=== PATIENT | female | born 1995 | race African-American/Black ===

== ENCOUNTER 2016-08-16 00:28 | Emergency (ER) | payer SELFPAY ==
[~2016-08-16] VITALS: Ht 170.2 cm; Wt 75.0 kg
[~2016-08-16 00:28] MED LIST: IMOD2TAB PO; PROM25SU8 PO
[2016-08-16 00:30] VITALS: BP 134/65; PULSE 74; RESP 16; TEMP 97.8; O2SAT 100
[2016-08-16] MEDS ORDERED: DICL75TA PO (01:12)
[2016-08-16] MEDS ORDERED: LAMI1CRE TOPICAL (01:13)
--- NOTE | 2016-08-16 01:17 | PD ---
HPI Chief Complaint: Injury Time Seen by Provider: 01:13 Travel History International Travel<30 days: No Contact w/Intl Traveler<30days: No Traveled to known affect area: No History of Present Illness HPI 20-year-old black female presents to emergency Department with complaints of bilateral foot pain and swelling. She states that her feet are wet continuously as she works. They've been bothering her now for one month. They' re sharp and throbbing. She also has breakdown of the skin. She denies any fever or chills. No aggravating or alleviating factors PFSH Past Medical History ADHD: Yes Diminished Hearing: No Tetanus Vaccination: Unknown Influenza Vaccination: No ?: Not Past Surgical History Eye Surgery: Yes Social History Alcohol Use: Yes (once a week) Tobacco Use: Yes Substance Use: Yes (Marijuana) Allergies-Medications (Allergen,Severity, Reaction): Coded Allergies: No Known Allergies (Unverified , 08/16/16) Reported Meds & Prescriptions Reported Meds & Active Scripts Active Diclofenac Sodium DR (Diclofenac Sodium) 75 Mg Tabdr 75 Mg PO BID Review of Systems Except as stated in HPI: all other systems reviewed are Neg Musculoskeletal: Positive: Edema, Pain Skin: Positive Rash, Positive Itching Physical Exam Narrative GENERAL: This is a well-nourished, well-developed patient, in no apparent distress. SKIN: No rashes, ecchymoses or lesions. Warm and dry. HEAD: Atraumatic. Normocephalic. EYES: PERRL, EOMI, no discharge or injection. No scleral icterus. EARS: Clear NOSE: Nasal turbinates appear normal. THROAT: Mucosa pink and moist. Airway patent. NECK: Trachea midline. supple, moves head freely. LUNGS: Clear to auscultation. CV: Regular in rhythm. ABDOMEN: Soft nontender. EXT: No clubbing cyanosis. Examination of both feet reveal edema of the distal forefoot with skin breakdown and blistering. This is worse in the interdigital spaces but involves the plantar surface of the feet. She has intact sensation with good distal pulses. There is a foul odor associated with this. This is consistent with foot fungus Data Data Last Documented VS Vital Signs Date Time Temp Pulse Resp B/P Pulse Ox O2 Delivery O2 Flow Rate FiO2 08/16/16 01:03 16 Room Air 08/16/16 00:30 97.8 74 134/65 100 MDM Medical Decision Making Medical Screen Exam Complete: Yes Emergency Medical Condition: Yes Medical Record Reviewed: Yes Differential Diagnosis MDM: High Differential diagnoses: Abscess, folliculitis, cellulitis, lymphangitis, abrasion, contact dermatitis, tinea pedis Narrative Course This is tinea pedis Diagnosis Primary Impression: Tinea pedis of both feet Patient Instructions: General Instructions Additional Instructions: Rest. Elevation. Keep her feet clean and dry. Wash her feet with soap and water twice daily. Medications as directed. Where 2 pairs of socks. Follow-up with a history department chair in 1-2 weeks. Med/Other Pt SpecificInfo: Prescription(s) given, Wound Care Scripts Terbinafine Topical (Lamisil At Topical)1 % Cream1 Applic TOPICAL BID 30 Days Ref 0 Prov:Nadine Moore MD 08/16/[address] 75 Mg Tabdr75 Mg PO BID #20 TAB Prov:Nadine Moore MD 08/16/16 Disposition: 01 DISCHARGE HOME Condition: Stable Cosme Perry Aug 16, 2016 01:17
== END 2016-08-16 01:47 | disposition home or self-care (01) ==
LOC: NEPB 00:28
DX: B35.3 Tinea pedis (principal); F90.9 Attention-deficit hyperactivity disorder, unspecified type; F12.10 Cannabis abuse, uncomplicated; F10.10 Alcohol abuse, uncomplicated; Z72.0 Tobacco use
CPT/HCPCS: 99283

== ENCOUNTER 2016-12-28 18:07 | Inpatient (IN) | payer SELFPAY ==
[~2016-12-28] VITALS: Ht 167.6 cm; Wt 71.0 kg
[~2016-12-28 18:07] MED LIST changes: +DICL75TA PO; -IMOD2TAB PO; +LAMI1CRE TOPICAL; -PROM25SU8 PO
[2016-12-28 18:09] VITALS: BP 139/86; PULSE 71; RESP 16; TEMP 98.8; O2SAT 100
[2016-12-28] MEDS ORDERED: LORazepam 1 MG TAB PO ONE ×2 (18:45→21:00)
--- NOTE | 2016-12-28 18:52 | PD ---
HPI Chief Complaint: Psychiatric Symptoms Time Seen by Provider: 18:49 Travel History International Travel<30 days: No Contact w/Intl Traveler<30days: No Traveled to known affect area: No History of Present Illness HPI 21-year-old female that presents to the ED for evaluation of psychiatric evaluation. Patient has a history of MR and adjustment disorder. She apparently for the past year has progressively gotten worse. Patient has had episodes where she will going rampage and that she will get really angry and agitated and making multiple statements and conversant family members. Patient was brought here by family is concerned as today the last episode was more severe and they were able to convince her to come here. On initial evaluation patient is having anger outbursts but she is able to be redirected. Patient denies any suicidal or homicidal ideation but apparently she made a suicidal To a family member yesterday. She has no psychiatrist. She takes no medications. No allergies. Denies any chest pain or shortness of breath. Other medical issues. Denies any drug abuse other than marijuana when she was younger. [facility] Past Medical History ADHD: Yes Diminished Hearing: No ?: Not LMP: 12/22/2016 Past Surgical History Eye Surgery: Yes Social History Alcohol Use: Yes (once a week) Tobacco Use: Yes Substance Use: Yes (Marijuana cocaine) Allergies-Medications (Allergen,Severity, Reaction): Coded Allergies: No Known Allergies (Unverified , 08/16/16) Reported Meds & Prescriptions Reported Meds & Active Scripts Active Lamisil At Topical (Terbinafine Topical) 1 % Cream 1 Applic TOPICAL BID [address] (Diclofenac Sodium) 75 Mg Tabdr 75 Mg PO BID Reported Propranolol (Propranolol HCl) 10 Mg Tab 10 Mg PO DAILY Lexapro (Escitalopram Oxalate) 10 Mg Tab 10 Mg PO DAILY Review of Systems Except as stated in HPI: all other systems reviewed are Neg Physical Exam Narrative GENERAL: SKIN: Warm and dry. HEAD: Atraumatic. Normocephalic. EYES: Pupils equal and round. No scleral icterus. No injection or drainage. ENT: No nasal bleeding or discharge. Mucous membranes pink and moist. NECK: Trachea midline. No JVD. CARDIOVASCULAR: Regular rate and rhythm. RESPIRATORY: No accessory muscle use. Clear to auscultation. Breath sounds equal bilaterally. GASTROINTESTINAL: Abdomen soft, non-tender, nondistended. Hepatic and splenic margins not palpable. MUSCULOSKELETAL: Extremities without clubbing, cyanosis, or edema. No obvious deformities. NEUROLOGICAL: Awake and alert. No obvious cranial nerve deficits. Motor grossly within normal limits. Five out of 5 muscle strength in the arms and legs. Normal speech. PSYCHIATRIC: Appropriate mood and affect; insight and judgment normal. Data Data Last Documented VS Vital Signs Date Time Temp Pulse Resp B/P Pulse Ox O2 Delivery O2 Flow Rate FiO2 12/28/16 18:32 20 12/28/16 18:09 98.8 71 139/86 100 Room Air Orders Complete Blood Count With Diff (12/28/16 18:29) Comprehensive Metabolic Panel (12/28/16 18:29) Urinalysis - C+S If Indicated (12/28/16 18:29) Psych Screen (12/28/16 18:29) Drug Screen, Random Urine (12/28/16 18:29) Alcohol (Ethanol) (12/28/16 18:29) Salicylates (Aspirin) (12/28/16 18:29) Tylenol (Acetaminophen) (12/28/16 18:29) Lorazepam (Ativan) (12/28/16 18:45) Labs Laboratory Tests Test 12/28/16 19:20 White Blood Count 6.3 TH/MM3 Red Blood Count 4.94 MIL/MM3 Hemoglobin 13.6 GM/DL Hematocrit 40.9 % Mean Corpuscular Volume 82.8 FL Mean Corpuscular Hemoglobin 27.6 PG Mean Corpuscular Hemoglobin 33.4 % Concent Red Cell Distribution Width 13.9 % Platelet Count 253 TH/MM3 Mean Platelet Volume 7.4 FL Neutrophils (%) (Auto) 67.8 % Lymphocytes (%) (Auto) 24.8 % Monocytes (%) (Auto) 6.7 % Eosinophils (%) (Auto) 0.2 % Basophils (%) (Auto) 0.5 % Neutrophils # (Auto) 4.3 TH/MM3 Lymphocytes # (Auto) 1.6 TH/MM3 Monocytes # (Auto) 0.4 TH/MM3 Eosinophils # (Auto) 0.0 TH/MM3 Basophils # (Auto) 0.0 TH/MM3 CBC Comment DIFF FINAL Differential Comment Sodium Level 139 MEQ/L Potassium Level 3.7 MEQ/L Chloride Level 107 MEQ/L Carbon Dioxide Level 24.9 MEQ/L Anion Gap 7 MEQ/L Blood Urea Nitrogen 10 MG/DL Creatinine 0.86 MG/DL Estimat Glomerular Filtration 100 ML/MIN Rate Random Glucose 71 MG/DL Calcium Level 9.1 MG/DL Total Bilirubin 0.4 MG/DL Aspartate Amino Transf 16 U/L (AST/SGOT) Alanine Aminotransferase 19 U/L (ALT/SGPT) Alkaline Phosphatase 61 U/L Total Protein 7.6 GM/DL Albumin 4.2 GM/DL Salicylates Level 3.5 MG/DL Urine Opiates Screen NEG Acetaminophen Level LESS THAN 2.0 MCG/ML Urine Barbiturates Screen NEG Urine Amphetamines Screen NEG Urine Benzodiazepines Screen NEG Urine Cocaine Screen NEG Urine Cannabinoids Screen POS Ethyl Alcohol Level LESS THAN 3 MG/DL MDM Medical Decision Making Medical Screen Exam Complete: Yes Emergency Medical Condition: Yes Medical Record Reviewed: Yes Interpretation(s) CBC & BMP Diagram 12/28/16 19:20 LFTs WNL tox positive for cannabinoids. Differential Diagnosis Depression versus suicidal ideation versus anxiety versus adjustment disorder versus mood disorder versus bipolar disorder versus schizophrenia versus paranoid disorder versus psychosis versus substance abuse versus alcohol abuse versus alcohol induced psychosis versus homicidality addition versus cutting versus personality disorder Narrative Course 21-year-old female that presents to the ED for evaluation of psych. Patient was properly examined and was found to have signs and symptoms consistent with psychiatric illness. No sign of acute medical distress. Patient at this moment is voluntary and she denies any suicidal ideation. Family is here with her and agree with psychiatric evaluation. Patient was given Ativan by mouth to help with her symptoms. At the time she is now called. Labs were ordered. Patient will be medically clear. Okay to be seen by psych. Mental health screening was discussed with the patient. Diagnosis Primary Impression: Outbursts of anger Neal Bautista Dec 28, 2016 18:52
[2016-12-28] MEDS ORDERED: PROP10TA6 PO (19:29)
[2016-12-28] MEDS ORDERED: LEXA10TA PO (19:29)
[2016-12-28 19:58] LABS: AUTOMATED NEUTROPHIL # 4.3 TH/MM3 (1.8-7.7); BASOPHIL % 0.5 % (0.0-2.0); EOSINOPHIL % 0.2 % (0.0-4.0); HEMATOCRIT 40.9 % (35.0-46.0); HEMO FLAGS DIFF FINAL; LYMPH % 24.8 % (9.0-44.0); LYMPHOCYTE # 1.6 TH/MM3 (1.0-4.8); MEAN CELL VOLUME 82.8 FL (80.0-100.0); MEAN CORPUSCULAR HEMOGLOBIN 27.6 PG (27.0-34.0); MEAN CORPUSCULAR HGB CONC 33.4 % (32.0-36.0); MONO % 6.7 % (0.0-8.0); NEUT % 67.8 % (16.0-70.0); PLATELET COUNT 253 TH/MM3 (150-450); RED BLOOD COUNT 4.94 MIL/MM3 (4.00-5.30); RED CELL DISTRIBUTION WIDTH 13.9 % (11.6-17.2); WHITE BLOOD COUNT 6.3 TH/MM3 (4.0-11.0)
[2016-12-28 20:00] VITALS: BP 124/64; PULSE 72; RESP 18; O2SAT 100
[2016-12-28 20:21] LABS: AMPHETAMINE, URINE NEG (NEG); BARBITURATES, URINE NEG (NEG); COCAINE, URINE NEG (NEG)
[2016-12-28 20:22] LABS: ANION GAP 7 MEQ/L (5-15); AST (GOT) 16 U/L (15-37); BICARBONATE 24.9 MEQ/L (21.0-32.0); BLOOD UREA NITROGEN 10 MG/DL (7-18); CHLORIDE 107 MEQ/L (98-107); GLOMERULAR FILTRATION RATE 100 ML/MIN (>89); POTASSIUM 3.7 MEQ/L (3.5-5.1); SODIUM (NA) 139 MEQ/L (136-145)
[2016-12-28 20:25] LABS: ACETAMINOPHEN LESS THAN 2.0 MCG/ML (10.0-30.0); ALKALINE PHOSPHATASE 61 U/L (45-117); ALT (GPT) 19 U/L (10-53); TOTAL BILIRUBIN ADULT 0.4 MG/DL (0.2-1.0)
[2016-12-28 20:31] LABS: BACTERIA, URINE MANY /hpf; BLOOD, URINE SMALL (NEG); COMMENT (UR) CULTURE INDICATED; CULTURE IF INDICATED CULTURE INDICATED; GLUCOSE,URINE NEG (NEG); KETONE, URINE 10 mg/dL (NEG); MUCUS URINE MANY /lpf (OCC); NITRITE,URINE NEG (NEG); PH, URINE 5.5 (5.0-8.5); SQUAMOUS EPITHELIAL CELL URINE 7 /hpf (0-5); URINE COLOR YELLOW (YELLW/STRAW)
[2016-12-28] MEDS ORDERED: SULFAMETHOXAZOLE-TRIMETHOPRIM DS 800-160 MG TAB PO ONE (21:00)
[2016-12-28] MEDS ORDERED: BACT800T5 PO (21:07)
[2016-12-28] MEDS ORDERED: LORazepam 2 MG/ML VIAL IV PUSH ONE (21:15)
[2016-12-28] MEDS ORDERED: LORazepam 2 MG/ML VIAL IM ONE (21:15)
[2016-12-28 23:07] VITALS: BP 101/59; PULSE 61; RESP 20; TEMP 98.1; O2SAT 99
[2016-12-29 02:19] VITALS: BP 115/75; PULSE 61; RESP 16
[2016-12-29 06:39] VITALS: BP 120/64; PULSE 74; RESP 18
[2016-12-29 10:18] VITALS: BP 144/62; PULSE 83; RESP 18; O2SAT 100
[2016-12-29] MEDS: ZIPRASIDONE MESYLATE 20 MG VIAL IM PRN ×2 (13:00→13:15)
[2016-12-29] MEDS ORDERED: diphenhydrAMINE HCL 50 MG/ML VIAL IM ONE (13:00)
[2016-12-29] MEDS ORDERED: LORazepam 2 MG/ML VIAL IM ONE (13:00)
[2016-12-29 14:30] VITALS: BP 138/80; PULSE 74; RESP 20
[2016-12-29 18:38] VITALS: BP 140/92; PULSE 61; RESP 18
[2016-12-29 22:16] VITALS: BP 118/52; PULSE 62; RESP 18; TEMP 97.3; O2SAT 100
[2016-12-30] MEDS ORDERED: LORazepam 2 MG/ML VIAL IM ONE ×3 (05:30→18:30)
[2016-12-30] MEDS ORDERED: ZIPRASIDONE MESYLATE 20 MG VIAL IM ONE ×4 (06:00→18:30)
[2016-12-30 06:48] VITALS: BP 116/65; PULSE 115; RESP 20; TEMP 98.7; O2SAT 97
[2016-12-30] MEDS: SULFAMETHOXAZOLE-TRIMETHOPRIM DS 800-160 MG TAB PO SCH ×2 (10:44→21:00)
[2016-12-30 11:16] VITALS: BP 158/94; PULSE 86; RESP 16; O2SAT 100
[2016-12-30] MEDS ORDERED: LORazepam 2 MG/ML VIAL - age > 65 yrs IM PRN (14:15)
[2016-12-30] MEDS ORDERED: MAGNESIUM HYDROXIDE SUSP 30 ML CUP PO PRN (14:15)
[2016-12-30] MEDS ORDERED: ALUMINUM/MAGNESIUM/SIMETH 30 ML CUP PO PRN (14:15)
[2016-12-30] MEDS ORDERED: LORazepam 2 MG/ML VIAL IM PRN (14:15)
[2016-12-30] MEDS ORDERED: LORazepam 0.5 MG TAB age > 65 yrs PO PRN (14:15)
[2016-12-30 16:50] VITALS: BP 138/79; PULSE 100; RESP 19; TEMP 97.7
[2016-12-30] MEDS ORDERED: diphenhydrAMINE HCL 50 MG/ML VIAL IM ONE ×2 (18:06→18:30)
[2016-12-30] MEDS ORDERED: LORazepam 2 MG/ML VIAL ONE (18:19)
[2016-12-30] MEDS ORDERED: diphenhydrAMINE HCL 50 MG/ML VIAL ONE (18:19)
[2016-12-30] MEDS: REMOVE OLD NICOTINE PATCH T-DERMAL SCH (21:00)
[2016-12-30] MEDS: LORazepam 1 MG TAB PO PRN (21:07)
[2016-12-31 05:39] VITALS: BP 124/58; PULSE 89; RESP 18; TEMP 98.7; O2SAT 98
[2016-12-31] MEDS: NICOTINE 21 MG/24 HR PATCH T-DERMAL SCH (09:00)
[2016-12-31] MEDS: SULFAMETHOXAZOLE-TRIMETHOPRIM DS 800-160 MG TAB PO SCH ×2 (09:00→20:44)
[2016-12-31] MEDS: LORazepam 1 MG TAB PO PRN ×3 (09:19→20:44)
[2016-12-31] MEDS: ACETAMINOPHEN 325 MG TAB PO PRN (09:19)
[2016-12-31] MEDS ORDERED: INFLUENZA VIRUS VACCINE (QUADRIVALENT) 0.5 ML SYR IM ONE (10:00)
[2016-12-31 11:10] LABS: ANION GAP 6 MEQ/L (5-15); BICARBONATE 25.9 MEQ/L (21.0-32.0); BLOOD UREA NITROGEN 10 MG/DL (7-18); CHLORIDE 107 MEQ/L (98-107); GLOMERULAR FILTRATION RATE 73 ML/MIN (>89); SODIUM (NA) 139 MEQ/L (136-145)
[2016-12-31 11:13] LABS: LDL CHOLESTEROL 78 MG/DL (0-99)
--- NOTE | 2016-12-31 11:43 | HHI.HP ---
Provisional Diagnosis Admission Date Dec 30, 2016 at 13:54 [place] I. Brief psychotic disorder Certification of Person's Competence To Provide Express and Informed Consent I have personally examined Barbra Simmons , a person being served at [facility] on, Dec 31, 2016 11:41. Express and informed consent means consent voluntarily given in writing, by a competent person, after sufficient explanation and disclosure of the subject matter involved to enable the person to make a knowing and willful decision without any element of force, fraud, deceit, duress, or other form of constraint or coercion. This person is 18 years of age or older, is not now known to be incompetent to consent to treatment with a guardian advocate, and does not have a health care surrogate or proxy currently making medical treatment decisions. I have found this person to be one of the following: [] Competent to provide express and informed consent, as defined above, for voluntary admission to this facility and is competent to provide express and informed consent for treatment. He/she has the consistent capacity to make well reasoned, willful, and knowing decisions concerning his or her medical or mental health treatment. The person fully and consistently understands the purpose of the admission for examination/placement and is fully capable of personally exercising all rights assured [place] [X] Incompetent to provide express and informed consent to voluntary admission, and this is incompetent to provide express and informed consent to treatment. The person must be transferred to involuntary status and a petition for a guardian advocate filed with the Circuit Court. [] Refusing to provide express and informed consent to voluntary admission but is competent to provide express and informed consent for treatment. The person must be discharged or transferred to involuntary status. Form shall be completed within 24 hours of a person's arrival at the receiving facility and filed in the clinical record of each person: 1. Admitted on a voluntary basis 2. Permitted to provide express and informed consent to his/her own treatment 3. Allowed to transfer from involuntary to voluntary status 4. Prior to permitting a person to consent to his or her own treatment after having been previously found incompetent to consent to treatment. History of Present Illness Capacity: Has Capacity HPI Patient spent approximately 30 hours in the emergency department. She was grossly psychotic, extremely disorganized, extremely agitated, and unable to provide a history. She required multiple antipsychotic injections and multiple physical restraints to keep her from harming herself. She cried often but was nonsensical in her speech. This physician was unable to obtain information from her until today, which consisted of a phone number for her sister. Patient is unable to give adequate history or explanation for her behavior. There is some admission of smoking marijuana, which of course may have been laced with drugs. Patient being admitted because she is a danger to herself and others. Review of Systems ROS Limitations: Altered Mental Status, Uncooperative, Combative, Psychotic Past Psych History Psychological trauma history Unknown. Poor historian. Violence risk - others (6 mos) High. Violence risk - self (6 mos) High Substance Abuse History Drugs/Alcohol past 12 months History of marijuana use. Unknown use of other drugs. Past Family Social History Coded Allergies: No Known Allergies (Unverified , 08/16/16) Active Scripts Sulfamethoxazole-Trimethoprim (Bactrim DS)800-160 Mg Tab1 Tab PO BID 7 Days Prov:Karina Carter DO 12/28/16 Reported Medications Propranolol 10 Mg Tab10 Mg PO DAILY #60 TAB Ref 0 12/28/16 Escitalopram (Lexapro)10 Mg Tab10 Mg PO DAILY #30 TAB Ref 0 12/28/16 Discontinued Scripts Diclofenac Sodium DR 75 Mg Tabdr75 Mg PO BID #20 TAB Prov:Nadine Moore MD 08/16/16 Current Medications Medications (Trade) Dose Ordered Sig/Judson Route Start Time Stop Time Status Last Admin (Bactrim Ds 800-160 Mg) 1 tab Q12HR PO 12/30/16 10:45 01/08/17 10:44 12/31/16 09:00 (Ativan) 1 mg Q6H PRN PO 12/30/16 14:15 12/31/16 09:19 (Ativan Inj) 1 mg Q6H PRN IM 12/30/16 14:15 (Ativan) 0.5 mg Q12H PRN PO 12/30/16 14:15 (Ativan Inj) 0.5 mg Q12H PRN IM 12/30/16 14:15 (Tylenol) 650 mg Q4H PRN PO 12/30/16 14:15 12/31/16 09:19 (Milk Of Magnesia Liq) 30 ml DAILY PRN PO 12/30/16 14:15 (Mag-Al Plus Susp Liq) 30 ml Q6H PRN PO 12/30/16 14:15 (Habitrol 21 Mg Patch.24 Hr) 1 patch DAILY T-DERMAL 12/31/16 09:00 Miscellaneous Information 1 HS T-DERMAL 12/30/16 21:00 Family History Unknown. Patient noncooperative. Social History Unknown. Patient not cooperative. Patient's Strengths (min. 2) Resilient. Has access to healthcare. Physical Exam GENERAL: SKIN: Warm and dry. HEAD: Normocephalic. EYES: No scleral icterus. No injection or drainage. NECK: Supple, trachea midline. No JVD or lymphadenopathy. CARDIOVASCULAR: Regular rate and rhythm without murmurs, gallops, or rubs. RESPIRATORY: Breath sounds equal bilaterally. No accessory muscle use. GASTROINTESTINAL: Abdomen soft, non-tender, nondistended. MUSCULOSKELETAL: No cyanosis, or edema. BACK: Nontender without obvious deformity. No CVA tenderness. Vital Signs Vital Signs Date Time Temp Pulse Resp B/P Pulse Ox O2 Delivery O2 Flow Rate FiO2 12/31/16 05:39 98.7 89 18 124/58 98 12/29/16 10:18 Room Air Mental Status Examination Speech: Rapid, Incoherent Orientation: Person Memory: Impaired (describe) Thought Process: Loose Association Thought Content: Bizarre thinking, Paranoid, Ideas of Reference Hallucination Type: Auditory Attention and Concentration: Easily Distracted Suicidal Ideation: Yes Previous Suicide Attempts: No Homicidal Ideation: No Previous Homicide Attempts: No Insight: Poor Judgment: Poor Affect: Irritable, Anxious Affect if Inappropriate: Labile Mood: Oppositional, Anxious, Irritable Motor Activity: Normal gait Assessment & Plan Problem List: (1) Brief psychotic disorder ICD Code: F23 Assessment & Plan Estimated LOS: days patient found to be at very high risk of harm to self and others. She is completely uncooperative and grossly psychotic. She is requiring restraints of a physical nature as well as chemical restraints to keep her and others safe. This physician will admit her for evaluation and treatment. We will obtain a CBC and metabolic profile to determine if any infectious process or metabolic process is causing her aggravating her psychosis. We will also check her TSH to determine if there is a thyroid abnormality causing her psychosis. She will likely receive serial EKGs to make sure the antipsychotic medications being prescribed will not hurt the conduction system of her heart. Vitamin B-12 and vitamin D levels will be obtained to ensure there is not a vitamin deficiency causing her psychosis. This physician spoke to the patient's nurse regarding her recent behavior. Backup Administrator will also be asked to obtain further information from family members. We will attempt to provide her with antipsychotic medication treatment. Lucas Monroy MD Dec 31, 2016 11:43
[2016-12-31 13:07] LABS: HEMOGLOBIN A1a 0.8 %; HEMOGLOBIN A1b 0.7 %; HEMOGLOBIN Ao 85.4 %; HEMOGLOBIN F 1.1 %; HEMOGLOBIN LA1C 1.9 %; HEMOGLOBIN P3 3.5 %
[2016-12-31] MEDS ORDERED: OLANZapine IM 10 MG VIAL IM ONE ×2 (15:41→16:15)
[2016-12-31] MEDS ORDERED: LORazepam 2 MG/ML VIAL ONE (15:41)
[2016-12-31] MEDS ORDERED: diphenhydrAMINE HCL 50 MG/ML VIAL ONE (15:42)
--- NOTE | 2016-12-31 16:08 | HHI.PYPN ---
Subjective Remarks This is a request for second opinion. Patient was seen, case discussed with nursing, admission note reviewed and yesterday. Yesterday patient was labile, agitated and childlike throwing temper tantrums and had to receive multiple ETO' s. Today she had been calm and be conducted in interview. During the interview patient was calm and collected and pleasant. She denied auditory hallucinations, visual hallucinations. Denied ideas of reference or thought insertion. She has a delusion where her phone is hacked and someone is controlling messages in the phone. She denied suicidal ideation intent or plan. Patient describes being in custodial for 11 months having been released last year. Upon the conclusion of the interview patient asked that she can go home today. When she was told Emanuel various reasons why, she became extremely labile affect with temper tantrum with crying, yelling at the top of her voice nonstop for 15 minutes. She received an ETO of Zyprexa Ativan and Benadryl 5 minutes into her episode. She is pending for possible restraints Objective Alert: Yes [place]: Person, Place Mood: Agitated, Angry Affect: Labile Memory Intact: Immediate (not tested) Hallucinations: Other Delusions: Yes Delusion Type: Paranoid (paranoid delusions that we are trying to kill her and her phone is hacked) Suicidal: Ideation (denies) Homicidal: Ideation (denies) Insight/Judgment Poor Labs Test 12/31/16 10:20 Sodium Level 139 MEQ/L Potassium Level 4.0 MEQ/L Chloride Level 107 MEQ/L Carbon Dioxide Level 25.9 MEQ/L Anion Gap 6 MEQ/L Blood Urea Nitrogen 10 MG/DL Creatinine 1.13 MG/DL Estimat Glomerular Filtration 73 ML/MIN Rate Random Glucose 95 MG/DL Hemoglobin A1c 5.6 % Calcium Level 8.9 MG/DL Triglycerides Level 76 MG/DL Cholesterol Level 131 MG/DL LDL Cholesterol 78 MG/DL HDL Cholesterol 38.0 MG/DL Cholesterol/HDL Ratio 3.44 RATIO Date/Time Procedure Status Source Growth 12/28/16 19:20 Urine Culture - Final Complete Urine Random Urine 50-100,000 CFU/ML MIXED GRAM POSITIVE... 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 Criteria include paranoia and labile mood. We will also start Zyprexa by mouth or IM along with Depakote. Patient did not endorse any active allergies or adverse reactions in our interview earlier Justification for Cont. Inpt. Patient will decompensate in a less restrictive setting Doc Lemos DO Dec 31, 2016 16:08
[2016-12-31] MEDS ORDERED: diphenhydrAMINE HCL 50 MG/ML VIAL IM ONE (16:15)
[2016-12-31] MEDS ORDERED: LORazepam 2 MG/ML VIAL IM ONE (16:15)
[2016-12-31] MEDS: OLANZapine IM 10 MG VIAL IM SCH (18:00)
[2016-12-31] MEDS: OLANZapine 5 MG TAB PO SCH (18:00)
[2016-12-31 18:19] VITALS: BP 114/60; PULSE 89; RESP 17; TEMP 97; O2SAT 99
[2016-12-31] MEDS: REMOVE OLD NICOTINE PATCH T-DERMAL SCH (20:44)
[2016-12-31] MEDS: DIVALPROEX SODIUM E.R. 500 MG TAB PO SCH (20:44)
[2017-01-01 05:58] VITALS: BP 119/65; PULSE 100; RESP 17; TEMP 97.1; O2SAT 99
[2017-01-01] MEDS: DIVALPROEX SODIUM E.R. 500 MG TAB PO SCH ×2 (08:14→21:00)
[2017-01-01] MEDS: OLANZapine 5 MG TAB PO SCH ×3 (08:14→17:52)
[2017-01-01] MEDS: SULFAMETHOXAZOLE-TRIMETHOPRIM DS 800-160 MG TAB PO SCH ×2 (08:17→21:00)
[2017-01-01] MEDS: NICOTINE 21 MG/24 HR PATCH T-DERMAL SCH (08:18)
[2017-01-01] MEDS: OLANZapine IM 10 MG VIAL IM SCH ×3 (08:18→17:50)
--- NOTE | 2017-01-01 10:46 | HHI.PYPN ---
Subjective Remarks Patient started on antipsychotic medication and mood stabilizing medication last evening. She is doing somewhat better this morning and she is more calm and more organized. She remains paranoid but is cooperative with staff. Review of Systems Except as stated in HPI: all other systems reviewed are Neg Objective Alert: Yes [place]: Person, Place Mood: Agitated, Angry Affect: Labile Memory Intact: Immediate (not tested) Hallucinations: Other Delusions: Yes Delusion Type: Paranoid (paranoid delusions that we are trying to kill her and her phone is hacked) Suicidal: Ideation (denies) Homicidal: Ideation (denies) Insight/Judgment Impaired but somewhat improved. Labs Date/Time Procedure Status Source Growth 12/28/16 19:20 Urine Culture - Final Complete Urine Random Urine 50-100,000 CFU/ML MIXED GRAM POSITIVE... Vitals/IOs Vital Signs Date Time Temp Pulse Resp B/P Pulse Ox O2 Delivery O2 Flow Rate FiO2 01/01/17 05:58 97.1 100 17 119/65 99 12/29/16 10:18 Room Air Assessment & Plan Problem List: (1) Brief psychotic disorder ICD Code: F23 Assessment & Plan Estimated LOS: days if patient continues to improve on antipsychotic and mood stabilizing medication, she may be discharged in the next day or 2. At this point, she has made in insufficient response to antipsychotics but she is slightly better. However she remains paranoid. Justification for Cont. Inpt. Paranoid and unable to care for herself. Lucas Mnoroy MD Jan 01, 2017 10:46
[2017-01-01] MEDS ORDERED: diphenhydrAMINE HCL 50 MG/ML VIAL ONE (11:00)
[2017-01-01] MEDS ORDERED: ZIPRASIDONE MESYLATE 20 MG VIAL IM ONE (11:30)
[2017-01-01] MEDS ORDERED: diphenhydrAMINE HCL 50 MG/ML VIAL IM ONE (11:30)
[2017-01-01] MEDS ORDERED: LORazepam 2 MG/ML VIAL IM ONE (11:30)
[2017-01-01] MEDS: ACETAMINOPHEN 325 MG TAB PO PRN (17:52)
[2017-01-01 18:32] VITALS: BP 124/60; PULSE 96; RESP 18; TEMP 96.8; O2SAT 99
[2017-01-01] MEDS: REMOVE OLD NICOTINE PATCH T-DERMAL SCH (21:00)
[2017-01-02 06:12] VITALS: BP 122/75; PULSE 95; RESP 18; TEMP 96.6; O2SAT 99
[2017-01-02] MEDS: OLANZapine IM 10 MG VIAL IM SCH ×3 (09:00→17:38)
[2017-01-02] MEDS: SULFAMETHOXAZOLE-TRIMETHOPRIM DS 800-160 MG TAB PO SCH ×2 (09:21→21:00)
[2017-01-02] MEDS: OLANZapine 5 MG TAB PO SCH ×3 (09:21→17:38)
[2017-01-02] MEDS: DIVALPROEX SODIUM E.R. 500 MG TAB PO SCH ×2 (09:21→21:00)
[2017-01-02] MEDS: NICOTINE 21 MG/24 HR PATCH T-DERMAL SCH (09:22)
--- NOTE | 2017-01-02 13:10 | HHI.PYPN ---
Subjective Remarks Continues to be grossly psychotic and easily agitated. Reviewed chart and discussed case with nursing staff. Patient is not ready for discharge and continues to require antipsychotic medication. Appears to be responding to internal stimuli as well as suffering from paranoid delusions. Review of Systems Except as stated in HPI: all other systems reviewed are Neg Objective Alert: Yes [place]: Person, Place Mood: Agitated, Angry Affect: Labile Memory Intact: Immediate (not tested) Hallucinations: Other Delusions: Yes Delusion Type: Paranoid (paranoid delusions that we are trying to kill her and her phone is hacked) Suicidal: Ideation (denies) Homicidal: Ideation (denies) Insight/Judgment Impaired Labs Date/Time Procedure Status Source Growth 12/28/16 19:20 Urine Culture - Final Complete Urine Random Urine 50-100,000 CFU/ML MIXED GRAM POSITIVE... Vitals/IOs Vital Signs Date Time Temp Pulse Resp B/P Pulse Ox O2 Delivery O2 Flow Rate FiO2 01/02/17 06:12 96.6 95 18 122/75 99 12/29/16 10:18 Room Air Assessment & Plan Problem List: (1) Brief psychotic disorder ICD Code: F23 Assessment & Plan Estimated LOS: days patient continues to need consistent antipsychotic medication. She is not competent to consent for treatment. Will ask patient's sister to serve his guardian and provide consent for treatment. Justification for Cont. Inpt. Psychotic, easily agitated and a harm to herself. Lucas Monroy MD Jan 02, 2017 13:10
[2017-01-02 18:49] VITALS: BP 125/59; PULSE 104; RESP 18; TEMP 97.9; O2SAT 99
[2017-01-02] MEDS: REMOVE OLD NICOTINE PATCH T-DERMAL SCH (21:00)
[2017-01-03 05:56] VITALS: BP 136/74; PULSE 85; RESP 18; TEMP 97.7; O2SAT 100
[2017-01-03] MEDS: OLANZapine IM 10 MG VIAL IM SCH ×2 (09:00→13:00)
[2017-01-03] MEDS: OLANZapine 5 MG TAB PO SCH ×2 (09:00→13:00)
[2017-01-03] MEDS: DIVALPROEX SODIUM E.R. 500 MG TAB PO SCH (09:08)
[2017-01-03] MEDS: NICOTINE 21 MG/24 HR PATCH T-DERMAL SCH (09:08)
[2017-01-03] MEDS: SULFAMETHOXAZOLE-TRIMETHOPRIM DS 800-160 MG TAB PO SCH (09:08)
--- NOTE | 2017-01-03 13:05 | HHI.DS ---
Psychiatry Discharge Summary Inpatient Psychiatric care?: Yes Advance Directive: Yes Reason Not Provided: Due to Patient Condition Mental Health AdvanceDirective: No Health Care Proxy: No Admission Admission Date Dec 30, 2016 at 13:54 Admission Diagnosis: (1) Brief psychotic disorder ICD Code: F23 Brief History Patient spent approximately 30 hours in the emergency department. She was grossly psychotic, extremely disorganized, extremely agitated, and unable to provide a history. She required multiple antipsychotic injections and multiple physical restraints to keep her from harming herself. She cried often but was nonsensical in her speech. This physician was unable to obtain information from her until today, which consisted of a phone number for her sister. Patient is unable to give adequate history or explanation for her behavior. There is some admission of smoking marijuana, which of course may have been laced with drugs. Patient being admitted because she is a danger to herself and others. Tobacco Use In Past 30 Days: 4 or Less Cigarettes/Day Alcohol Use: Never Hospital Course Patient had a rough hospital course early on, most likely due to illicit drug use. However, at the time of discharge she was calm, pleasant and cooperative. Cognition intact and no psychotic symptoms. She was compliant with staff and medication. Results Blood Pressure 136 / 74 Vital Signs Date Time Temp Pulse Resp B/P Pulse Ox O2 Delivery O2 Flow Rate FiO2 01/03/17 05:56 97.7 85 18 136/74 100 Laboratory Results Test 12/31/16 10:20 Hemoglobin A1c 5.6 % (4.3-6.0) Triglycerides Level 76 MG/DL (42-150) Cholesterol Level 131 MG/DL (120-200) LDL Cholesterol 78 MG/DL (0-99) HDL Cholesterol 38.0 MG/DL (40.0-60.0) Summary of Procedures None Pending results at discharge: No Medications # of Antipsychotic meds at D/C: 1 Appropriate >1 Antipsych meds?: 1 Approp Antipsych med options 1 - Minimum of three failed multiple trials of monotherapy. 2 - Documented plan to taper to monotherapy due to previous use of multiple meds OR cross-taper in progress at D/C. 3 - Documentation of augmentation of Clozapine. 4 - Justification other than those listed in allowable values 1-3, document here : Discharge Discharge Date: Jan 03, 2017 Discharge Diagnosis: (1) Brief psychotic disorder Diagnosis: Principal ICD Code: F23 Mental Status Exam at Disch At the time of discharge, the patient demonstrated no psychotic thinking. Her cognition was intact and she was verbally adam for safety. She had no suicidal or homicidal ideation, plan or intent. Pt Condition on Discharge: Stable Discharge Disposition: Discharge Home Discharge Instructions Diet Instructions: As Tolerated, No Restrictions Activities you can perform: Regular-No Restrictions Scheduled Appointment: Andriy Goddard Viraj Appointment Date: Jan 04, 2017 Appointment Time: 7:30am Discharge Time <= 30 minutes Discharge/Advance Care Plan Health Problems: (1) Brief psychotic disorder Goals to promote your health * To prevent worsening of your condition and complications * To maintain your health at the optimal level Directions to meet your goals Take your medications as prescribed Follow your dietary instruction Follow activity as directed Keep your appointments as scheduled Take your immunizations and boosters as scheduled If your symptoms worsen call your PCP, if no PCP go to Urgent Care Center or Emergency Room For 22/01 questions related to your inpatient stay or results of tests pending at discharge, please contact Dr. Lucas Monroy at Smoking is Dangerous to Your Health. Avoid second hand smoking Lucas Monroy MD Jan 03, 2017 13:05
[2017-01-03] MEDS ORDERED: SULF1TAB23 PO (13:13)
[2017-01-03] MEDS ORDERED: DEPA500T3 PO (13:13)
[2017-01-03] MEDS ORDERED: OLAN5TAB PO (13:13)
== END 2017-01-03 14:10 | disposition home or self-care (01) | DRG 885 ==
LOC: NEPC 18:07 → NEDA 12-30 13:54 → H270 12-30 15:00
PROVIDERS: ADMIT Psychiatry & Neurology Psychiatry; ATTEND Psychiatry & Neurology Psychiatry
DX: F23 Brief psychotic disorder (principal); Z78.1 Physical restraint status; F12.90 Cannabis use, unspecified, uncomplicated; F90.9 Attention-deficit hyperactivity disorder, unspecified type; Z72.0 Tobacco use
CPT/HCPCS: 80048; 80053; 80061; 80307; 81001; 83036; 85025; 87086; 96372; J1200; J2060; J3486

== ENCOUNTER 2017-01-14 17:31 | Emergency (ER) | payer SELFPAY ==
[~2017-01-14] VITALS: Ht 165.1 cm; Wt 80.0 kg
[~2017-01-14 17:31] MED LIST changes: +BACT800T5 PO; +DEPA500T3 PO; -DICL75TA PO; -LAMI1CRE TOPICAL; +LEXA10TA PO; +OLAN5TAB PO; +PROP10TA6 PO; +SULF1TAB23 PO
[2017-01-14] MEDS ORDERED: ZIPRASIDONE MESYLATE 20 MG VIAL IM ONE ×2 (17:34→19:15)
[2017-01-14] MEDS ORDERED: LORazepam 2 MG/ML VIAL ONE (17:34)
[2017-01-14] MEDS ORDERED: diphenhydrAMINE HCL 50 MG/ML VIAL ONE (17:34)
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
[2017-01-14 18:19] VITALS: BP 134/63; PULSE 97; RESP 18; TEMP 98.6; O2SAT 98
[2017-01-14] MEDS ORDERED: LORazepam 2 MG/ML VIAL IM ONE (19:15)
[2017-01-14] MEDS ORDERED: diphenhydrAMINE HCL 50 MG/ML VIAL IM ONE (19:15)
== END 2017-01-14 22:01 ==
LOC: NEPJ 17:31
DX: F23 Brief psychotic disorder (principal); F90.9 Attention-deficit hyperactivity disorder, unspecified type; F43.10 Post-traumatic stress disorder, unspecified; F31.9 Bipolar disorder, unspecified; F20.9 Schizophrenia, unspecified; Z79.899 Other long term (current) drug therapy; Z72.0 Tobacco use; Z87.820 Personal history of traumatic brain injury
CPT/HCPCS: 96372; 99285; J1200; J2060; J3486